=== PATIENT | male | born 1950 | race Caucasian/White ===

== ENCOUNTER → 2018-08-08 15:12 | Outpatient (CLI) | payer MEDICARE, SELFPAY ==
--- NOTE | 2018-08-08 | DI.RAD.S_ITS ---
PROCEDURE: XR CALCANEOUS RT MIN 2V INDICATIONS: CONTUSION OF RIGHT HEEL TECHNIQUE: Two views of the calcaneus were acquired. COMPARISON: None. FINDINGS: Bones: No fractures or dislocations. No suspicious bony lesions. Soft tissues: No suspicious calcifications. Achilles tendon appears normal. IMPRESSION: Normal calcaneus. No fracture found. Dictated by: Duc Francois M.D. on 08/08/2018 at 16:03 Approved by: Duc Francois M.D. on 08/08/2018 at 16:03
== END ==
PROVIDERS: PCP Family Medicine; Visit Provider Family Medicine
DX: S90.31XA Contusion of right foot, initial encounter (principal)
CPT/HCPCS: 73650